=== PATIENT | male | born 1985 | race Asian ===

== ENCOUNTER 2025-01-08 16:51 | Emergency (ER) | payer BC ==
[~2025-01-08] VITALS: Ht 170.2 cm; Wt 117.9 kg
[2025-01-08 17:01] VITALS: O2SAT 97
[2025-01-08] MEDS ORDERED: CEPH500C2 PO (18:49)
== END 2025-01-08 18:58 | disposition home or self-care (01) ==
LOC: ER 17:19
DX: H02.844 Edema of left upper eyelid (principal); F17.200 Nicotine dependence, unspecified, uncomplicated
CPT/HCPCS: A4606; A4663